=== PATIENT | male | born 1975 | race Caucasian/White ===

== ENCOUNTER 2021-08-02 12:51 | Emergency (ER) | payer OTHER ==
[~2021-08-02] VITALS: Ht 182.9 cm; Wt 99.8 kg
[2021-08-02 12:59] VITALS: BP_SYST 142
[2021-08-02] MEDS ORDERED: ACET-2634 PO (13:57)
[2021-08-02 14:33] VITALS: BP_SYST 142
== END 2021-08-02 14:32 | disposition home or self-care (01) ==
LOC: SED 12:51
DX: S92.531A Displaced fracture of distal phalanx of right lesser toe(s), initial encounter for closed fracture (principal); Z79.899 Other long term (current) drug therapy; W20.8XXA Other cause of strike by thrown, projected or falling object, initial encounter; Y93.89 Activity, other specified; Y92.89 Other specified places as the place of occurrence of the external cause; Y99.8 Other external cause status
CPT/HCPCS: 99283

== ENCOUNTER 2022-04-23 07:47 | Emergency (ER) | payer OTHER ==
[~2022-04-23] VITALS: Ht 182.9 cm; Wt 95.3 kg
[~2022-04-23 07:47] MED LIST: ACET-2634 PO
[2022-04-23 08:12] VITALS: BP_SYST 117
[2022-04-23] MEDS ORDERED: HYDROcodone/ACETAMIN 10-325 MG TAB PO ONE (09:00)
[2022-04-23] MEDS ORDERED: KETOROLAC TROMETHAMINE 60 MG/2 ML VIAL IM ONE (09:00)
--- NOTE | 2022-04-23 09:00 | NUR ---
Patient to ER bed H1 to gown for evaluation. Side rails up.
--- NOTE | 2022-04-23 09:02 | NUR ---
ER at bedside examining patient.
--- NOTE | 2022-04-23 09:03 | NUR ---
PT MEDICATED FOR L.FOOT PAIN.PT TOLERATED WELL.
[2022-04-23 09:10] VITALS: BP_SYST 117
--- NOTE | 2022-04-23 09:10 | NUR ---
Patient given written and verbal discharge instructions and verbalizes understanding. ER MD discussed with patient the results and treatment provided. Patient in stable condition. ID arm band removed. Rx of NORCO,MOTRIIN given. Patient educated on pain management and to follow up with PMD. Pain Scale 3. Opportunity for questions provided and answered. Medication side effect fact sheet provided.
[2022-04-23 09:25] LABS: BASOPHILS % (AUTO) 0.3 % (0.0-2.0); EOSINOPHILS # (AUTO) 0.1 K/uL (0.0-0.4); EOSINOPHILS % (AUTO) 1.4 % (0.0-4.0); HEMATOCRIT 50.3 % (36-54); HEMOGLOBIN 17.5 g/dL (14.0-18.0); LYMPHOCYTES # (AUTO) 1.5 K/uL (1.0-5.5); MEAN CORPUSCULAR HEMOGLOBIN 30 pg (27-31); MEAN CORPUSCULAR HGB CONC 35 % (32-36); MEAN CORPUSCULAR VOLUME 85 fL (79.0-98.0); MONOCYTES # (AUTO) 0.6 K/uL (0.0-1.0); MONOCYTES % (AUTO) 5.9 % (1.7-9.3); NEUTROPHILS # (AUTO) 7.3 K/uL (1.8-7.7); NEUTROPHILS % (AUTO) 76.4 % (40.0-70.0); PLATELET COUNT (AUTO) 190 K/uL (130-430); RED BLOOD CELL COUNT(AUTO) 5.91 MIL/uL (4.2-6.2); WHITE BLOOD COUNT (AUTO) 9.5 K/uL (4.8-10.8)
[2022-04-23 09:49] LABS: CALCIUM 9.3 mg/dL (8.4-11.0); CREATININE 1.32 mg/dL (0.55-1.30); POTASSIUM 4.1 mmol/L (3.5-5.1); TOTAL BILIRUBIN 0.4 mg/dL (0.0-1.0)
[2022-04-23 09:50] LABS: ALBUMIN 4.2 g/dL (3.4-4.8); C-REACTIVE PROTEIN QUANT 0.4 mg/dL (0-0.5)
[2022-04-23] MEDS ORDERED: HYDR-3917 PO (10:20)
[2022-04-23] MEDS ORDERED: IBUP-1971 PO (10:20)
[2022-04-23 10:32] LABS: ERYTHROCYTE SEDIMENTATION RATE 3 MM/HR (0-15)
== END 2022-04-23 09:10 | disposition home or self-care (01) ==
LOC: SED 07:47
DX: M79.672 Pain in left foot (principal); Z79.899 Other long term (current) drug therapy
CPT/HCPCS: 99284; 80053; 84550; 85025; 85651; 86140; 36415; 73630; 96372; J1885

== ENCOUNTER 2023-04-14 08:27 | Emergency (ER) | payer BC, OTHER ==
[~2023-04-14] VITALS: Ht 182.9 cm; Wt 90.7 kg
[~2023-04-14 08:27] MED LIST changes: +HYDR-3917 PO; +IBUP-1971 PO
[2023-04-14 08:37] VITALS: BP_SYST 138; PULSE 94; RESP 20; TEMP 97.6; O2SAT 99
[2023-04-14] MEDS ORDERED: KETOROLAC TROMETHAMINE 60 MG/2 ML VIAL IM ONE (08:45)
[2023-04-14] MEDS ORDERED: NAPR-690 PO (09:48)
[2023-04-14] MEDS ORDERED: COLC0.6T67 PO (09:48)
[2023-04-14 10:01] VITALS: RESP 20; TEMP 97.6; O2SAT 99
== END 2023-04-14 10:02 | disposition home or self-care (01) ==
LOC: SED 08:27
DX: M10.9 Gout, unspecified (principal); M79.672 Pain in left foot; Z85.47 Personal history of malignant neoplasm of testis; Z79.899 Other long term (current) drug therapy
CPT/HCPCS: 99283; 96372; J1885

== ENCOUNTER 2023-06-02 09:17 | Emergency (ER) | payer BC ==
[~2023-06-02] VITALS: Ht 172.7 cm; Wt 113.4 kg
[~2023-06-02 09:17] MED LIST changes: +COLC0.6T67 PO; +NAPR-690 PO
[2023-06-02 09:46] VITALS: BP_SYST 123; PULSE 95; RESP 18; TEMP 98.3; O2SAT 98
[2023-06-02 10:26] LABS: BILIRUBIN,URINE NEGATIVE (NEGATIVE); BLOOD, URINE NEGATIVE (NEGATIVE); CLARITY/URINE CLEAR (CLEAR); COLOR,URINE YELLOW (YELLOW); GLUCOSE,URINE NEGATIVE (NEGATIVE); KETONES,URINE NEGATIVE (NEGATIVE); LEUKOCYTE ESTERASE ,URINE NEGATIVE (NEGATIVE); NITRITE, URINE NEGATIVE (NEGATIVE); PROTEIN URINE NEGATIVE (NEGATIVE); UROBILINOGEN,URINE 0.2 (0.2-1.0)
[2023-06-02 10:38] LABS: BASOPHILS % (AUTO) 0.4 % (0.0-2.0); EOSINOPHILS # (AUTO) 0.1 K/uL (0.0-0.4); EOSINOPHILS % (AUTO) 0.8 % (0.0-4.0); HEMATOCRIT 49.4 % (36-54); HEMOGLOBIN 16.8 g/dL (14.0-18.0); LYMPHOCYTES # (AUTO) 2.2 K/uL (1.0-5.5); LYMPHOCYTES % (AUTO) 24.6 % (20.5-51.5); MEAN CORPUSCULAR HEMOGLOBIN 29 pg (27-31); MEAN CORPUSCULAR HGB CONC 34 % (32-36); MEAN CORPUSCULAR VOLUME 86 fL (79.0-98.0); MONOCYTES # (AUTO) 0.5 K/uL (0.0-1.0); MONOCYTES % (AUTO) 5.6 % (1.7-9.3); NEUTROPHILS # (AUTO) 6.2 K/uL (1.8-7.7); NEUTROPHILS % (AUTO) 68.6 % (40.0-70.0); PLATELET COUNT (AUTO) 215 K/uL (130-430); RED BLOOD CELL COUNT(AUTO) 5.73 MIL/uL (4.2-6.2); RED CELL DISTRIBUTION WIDTH 12.8 % (9.0-15.0)
[2023-06-02 10:54] LABS: CALCIUM 9.3 mg/dL (8.4-11.0); CREATININE 1.4 mg/dL (0.55-1.30); POTASSIUM 3.8 mmol/L (3.5-5.1)
[2023-06-02 10:58] LABS: ALBUMIN 4.2 g/dL (3.4-4.8); TOTAL BILIRUBIN 0.5 mg/dL (0.0-1.0); TOTAL PROTEIN, SERUM 7.4 g/dL (6.4-8.3)
[2023-06-02 15:19] VITALS: BP_SYST 123; PULSE 95; RESP 18; TEMP 98.3; O2SAT 98
== END 2023-06-02 15:07 | disposition home or self-care (01) ==
LOC: SED 09:17
DX: K52.9 Noninfective gastroenteritis and colitis, unspecified (principal); R10.31 Right lower quadrant pain; Z85.47 Personal history of malignant neoplasm of testis; Z79.899 Other long term (current) drug therapy
CPT/HCPCS: 99285; 74177; 80053; 83690; 85025; 36415; 76376; 76870; 81003; Q9967